=== PATIENT | female | born 1955 | race Caucasian/White ===

== ENCOUNTER → 2018-05-08 | Outpatient (CLI) | payer OTHER ==
--- NOTE | 2018-05-09 09:18 | PCVCIMAG ---
APPROVED REPORT Study performed: 05/08/2018 08:06:27 EXAM: Comprehensive 2D, Doppler, and color-flow Echocardiogram Patient Location: Echo lab Status: routine BSA: 2.08 HR: 60 bpmBP: 126/84 mmHg Rhythm: NSR, PVC's Other Information Study Quality: Good Risk Factors: Cardiac Risk Factors: HTN, Hyperlipidemia Indications Dyspnea Chest Pain 2D Dimensions IVSd: 10.74 (7-11mm)LVOT Diam: 22.00 (18-24mm) LVDd: 46.67 mm PWd: 11.21 (7-11mm)Ascending Ao: 38.01 (22-36mm) LVDs: 33.77 (25-40mm) Left Atrium: 42.26 (27-40mm) Aortic Root: 34.40 mm LV Single Plane 4CH: 66.71 % LV Single Plane 2CH: 63.25 % Biplane EF: 65.9 % Volumes Left Atrial Volume (Systole) Single Plane 4CH: 56.42 mLSingle Plane 2CH: 56.55 mL LA ESV Index: 27.00 mL/m2 Aortic Valve AoV Peak Damián.: 1.23 m/s AO Peak Gr.: 6.03 mmHgLVOT Max P.41 mmHg LVOT Max V: 0.92 m/s DORI Vmax: 2.83 cm2 Mitral Valve E/A Ratio: 0.8 MV Decel. Time: 206.79 ms MV E Max Damián.: 0.77 m/s MV A Damián.: 1.02 m/s IVRT: 48.44 ms TDI E/Lateral E': 9.63E/Medial E': 12.83 Medial E' Damián.: 0.06 m/s Lateral E' Damián.: 0.08 m/s Pulmonary Valve PV Peak Damián.: 0.86 m/sPV Peak Gr.: 2.96 mmHg MO End Vmax: 1.03 m/s Pulmonary Vein P Vein S: 0.71 m/sP Vein A: 0.31 m/s P Vein D: 0.44 m/sP Vein A Dur.: 96.9 msec P Vein S/D Ratio: 1.61 Tricuspid Valve TR Peak Damián.: 2.40 m/sRAP Estimate: 7.00 mmHg TR Peak Gr.: 23.02 mmHg PA Pressure: 31.00 mmHg Left Ventricle The left ventricle is normal size. There is normal LV segmental wall motion. Borderline concentric left ventricular hypertrophy. Left ventricular systolic function is normal. The left ventricular ejection fraction is within the normal range. LVEF is 60-65%. Grade I - abnormal relaxation pattern. Right Ventricle The right ventricle is normal size. The right ventricular systolic function is normal. Atria The left atrium size is normal. The right atrium size is normal. Aortic Valve The aortic valve is normal in structure. No aortic regurgitation is present. There is no aortic valvular stenosis. Mitral Valve The mitral valve is normal in structure. Mild mitral regurgitation. No evidence of mitral valve stenosis. Tricuspid Valve The tricuspid valve is normal in structure. Trace to mild tricuspid regurgitation. Pulmonary artery pressure is 31 mmHg. Pulmonic Valve The pulmonary valve is normal in structure. Trace pulmonic regurgitation. Great Vessels The aortic root is normal in size. IVC is normal in size and collapses >50% with inspiration. Pericardium There is no pericardial effusion. <Conclusion> The left ventricle is normal size. LVEF is 60-65%. The aortic valve is normal in structure. The mitral valve is normal in structure. Mild mitral regurgitation. The tricuspid valve is normal in structure. Trace to mild tricuspid regurgitation. Pulmonary artery pressure is 31 mmHg. The pulmonary valve is normal in structure. Trace pulmonic regurgitation. There is no pericardial effusion.
--- NOTE | 2018-05-09 14:59 | PCVCIMAG ---
APPROVED REPORT Imaging Protocol: Rest Tc-99m/Stress Tc-99m 1 day Study performed: 05/08/2018 09:20:02 Indication: Chest pain, Dyspnea, Lt Shoulder Pain Patient Location: Out-Patient Stress Nurse: Anne Chaudhry RN, Karen Veliz RN NH Tech:DARA Whitley Ht: 5 ft 5 in Wt: 220 lbs BSA: 2.06 m2 HR: 65 bpm BP: 167/77 mmHg BMI: 36.6 Rhythm: Sinus Rhythm Medical History Medications: ASA, Lasix, Nitro, Simvastatin, Imitrex, Diovan-HCT Allergies: Flurbiprofen Cardiac Risk Factors: Age, HTN, CHF Pretest Chest Pain Characteristics: No chest pain Exercise History: Physically active Resting Data Rest SPECT myocardial perfusion imaging was performed in supine position 45 minutes following the intravenous injection of 11.6 mCi of Tc-99m Sestamibi. Time of rest injection: 0850 Date: 05/08/2018 Administration Route: IV Administration Site: Right Arm Pharmacologic Stress Pharmacologic stress test was performed by injecting Regadenoson 0.4 mg IV push over 10-15 seconds immediately followed by the intravenous injection of 30.3 mCi of Tc-99m Sestamibi. Time of stress injection: 1005 Date: 05/08/2018 Administration Route: IV Administration Site: Right Arm Gated Stress SPECT was performed 45 minutes after stress injection. The images were gated to evaluate regional wall motion and calculate left ventricular ejection fraction. Stress Test Details Stress Test: Exercise stress testing was performed using a Marcus protocol. HRMax Heart Rate (APMHR): 159 bpm Resting HR: 65 bpmTarget HR (85% APMHR): 135 bpm Max HR Achieved: 176 bpm % of APMHR: 110 Recovery HR: 91 bpm HR response to stress: Normal HR response to stress BP Resting BP: 167/77 mmHg Max BP: 176/85 mmHg Recovery BP: 155/74 mmHg BP response to stress: Normal blood pressure response to stress. ECG Resting ECG: Sinus Rhythm Stress ECG: Sinus Tachycardia Maximum ST Deviation: 2.20 mm Arrhythmia: PVCs Recovery ECG: Sinus Rhythm Recovery ST Change: None, None Clinical Reason for Termination: Dyspnea, Fatigue Stress Symptoms: Dyspnea Exercise duration: 9 min 00 sec Exercise capacity: 10.10 METs Symptoms resolved during recovery. Stress ECG Conclusion 1. Subjectively negative for ischemia 2. J-point depression with upsloping ST segments which did not refill criteria for ischemia 3. Satisfactory functional capacity Study Data Post stress, the left ventricular ejection was 58%.. SSS: 5 SRS: 0 SDS: 5 TID = 0.97. Perfusion There is a medium area of moderately reduced uptake in the mid and apical segment of the anterolateral wall which is seen on the stress images and improves on the resting images. This area thickens and moves normally and is most consistent with ischemia although artifact cannot be excluded. Wall Motion Normal left ventricular wall motion. Nuclear Conclusion ECG Findings: negative for ischemia Clinical Findings: negative for ischemia Nuclear Findings: positive for ischemia Exercise Capacity: normal Left Ventricular Function: normal 1. Intermediate to high risk study based on evidence of his reducible ischemia involving the apical portion of the anterolateral wall Interpreted by: Anna Franklin MD Electronically Approved: 05/09/2018 14:58:41 <Conclusion> 1. Subjectively negative for ischemia 2. J-point depression with upsloping ST segments which did not refill criteria for ischemia 3. Satisfactory functional capacity
== END | disposition home or self-care (01) ==
LOC: PCVCIMAG 08:20
PROVIDERS: ATTEND Internal Medicine
DX: I05.1 Rheumatic mitral insufficiency (principal); I11.0 Hypertensive heart disease with heart failure; I50.9 Heart failure, unspecified; M25.512 Pain in left shoulder; R06.00 Dyspnea, unspecified; R07.9 Chest pain, unspecified; E78.5 Hyperlipidemia, unspecified
CPT/HCPCS: 78452; 93017; 93306; A9500